=== PATIENT | female | born 1950 | race Caucasian/White ===

== ENCOUNTER 2019-07-29 20:17 | Observation (INO) ==
[2019-07-29 20:50] LABS: Basophils % 0.3 %; Eosinophils % 0.2 %; Hemoglobin 15.1 g/dL (11.5-15.4); Immature Granulocytes % 0.4 % (0-4); Lymphocytes # 0.8 K/mcL (0.6-4.6); Lymphocytes % 6.5 %; Mean Corpuscular HGB Conc 32.8 g/dL (31.6-35.5); Mean Corpuscular Hemoglobin 26.1 pg (28.0-33.3); Mean Corpuscular Volume 79.4 fL (83.0-100.0); Mean Platelet Volume 9.3 fL (9.4-12.4); Monocytes # 0.1 K/mcL (0.0-1.3); Monocytes % 0.8 %; Platelet Count 328 K/mcL (140-400); Red Blood Count 5.79 M/mcL (3.82-4.97); Red Cell Distribution Width 14.3 % (11.5-14.5); Segmented Neutrophils % 91.8 %
[2019-07-29] MEDS ORDERED: Levalbuterol Neb 1.25 MG/3 ML IH ONE (20:51)
[2019-07-29 21:08] LABS: Alanine Aminotransferase 14 Units/L (7-52); Albumin 3.9 g/dL (3.5-5.7); Albumin/Globulin Ratio 1.3 (1.1-2.2); Alkaline Phosphatase 97 Units/L (34-104); Aspartate Amino Transferase 15 Units/L (13-39); BUN/Creatinine Ratio 15 (6-26); Bilirubin,Total 0.3 mg/dL (0.3-1.0); Blood Urea Nitrogen 10 mg/dL (8-23); Calcium 9.2 mg/dL (8.6-10.3); Carbon Dioxide 23 mEq/L (23-29); Chloride 98 mEq/L (98-107); Globulin 2.9 g/dL (2.4-3.5); Glucose 168 mg/dL (70-105); Osmolality,Calculated 273 (280-300); Potassium 4.3 mEq/L (3.5-5.1); Sodium 130 mEq/L (136-145); Total Protein 6.8 g/dL (6.4-8.9); eGFR For African Americans > 60 (> 60); eGFR For Non-African Americans > 60 (> 60)
[2019-07-29 21:14] LABS: Troponin I < 0.03 ng/mL (< 0.04)
[2019-07-29 21:18] LABS: ABG Base Excess 0 mEq/L (-2 to 3); ABG HCO3 25 mEq/L (21-27); ABG Oxygen Saturation 86 % (95-98); ABG PCO2 43 mmHg (35-45); ABG PH 7.37 pH Units (7.32-7.45); ABG PO2 53 mmHg (85-104); ABG TCO2 27 mEq/L (20-26)
[2019-07-29] MEDS ORDERED: 0.9 % Sodium Chloride 1,000 ML IVC SCH (22:18)
[2019-07-29] MEDS ORDERED: Albuterol 2.5 MG/3 ML NEBULIZER IH PRN (22:18)
[2019-07-29] MEDS ORDERED: Ondansetron 4 MG/2 ML VIAL IVP PRN (22:18)
[2019-07-29] MEDS ORDERED: Azithromycin 500 MG in D5% in Water 250 ML IVPB SCH (22:18)
[2019-07-29] MEDS ORDERED: Naloxone 0.4 MG/ML INJ IVP PRN (22:18)
[2019-07-29] MEDS ORDERED: cefTRIAXone 1,000 MG in 0.9 % Sodium Chloride Mini Bag 100 ML IVPB SCH (23:00)
[2019-07-29] MEDS: Ipratropium/Albuterol Neb 3 ML IH SCH (23:17)
[2019-07-30] MEDS: methylPREDNISolone 125 MG/2 ML VIAL IVP SCH ×2 (00:18→05:17)
[2019-07-30] MEDS: Ipratropium/Albuterol Neb 3 ML IH SCH ×2 (05:03→08:53)
[2019-07-30 06:48] LABS: ABG Base Excess -1 mEq/L (-2 to 3); ABG HCO3 28 mEq/L (21-27); ABG Oxygen Saturation 95 % (95-98); ABG PCO2 64 mmHg (35-45); ABG PH 7.25 pH Units (7.32-7.45); ABG PO2 87 mmHg (85-104); ABG TCO2 30 mEq/L (20-26)
[2019-07-30] MEDS ORDERED: *HR* Metformin 500 MG TABLET PO SCH (08:00)
[2019-07-30] MEDS ORDERED: Ondansetron 4 MG/2 ML VIAL IVP ONE (08:41)
[2019-07-30] MEDS ORDERED: Aspirin Enteric Coated 81 MG Tablet PO SCH (09:00)
[2019-07-30] MEDS ORDERED: Cholecalciferol (D-3) 1,000 UNIT (25MCG) TABLET PO SCH (09:00)
[2019-07-30] MEDS ORDERED: Lisinopril 20 MG TABLET PO SCH (09:00)
[2019-07-30 09:19] VITALS: BP 178/92
[2019-07-31] MEDS ORDERED: *HR* Enoxaparin 40 MG/0.4 ML SYRINGE SQ SCH (07:00)
== END 2019-07-30 09:30 | disposition short-term general hospital (02) ==
LOC: EMEROOGRE 20:17 → INPGRE 20:17
PROVIDERS: ADMIT Family Medicine; ATTEND Family Medicine